=== PATIENT | male | born 1950 | race Caucasian/White ===

== ENCOUNTER 2019-01-07 12:32 | Day surgery (SDC) | payer MEDICARE ==
[~2019-01-07] VITALS: Ht 170.2 cm; Wt 95.5 kg
[2019-01-07 13:19] VITALS: BP 126/80
[2019-01-07] MEDS ORDERED: ASPI-496 PO (13:24)
[2019-01-07] MEDS ORDERED: METO25TA35 PO (13:24)
[2019-01-07] MEDS ORDERED: ATOR40TA78 PO (13:24)
[2019-01-07] MEDS ORDERED: HYDROCHLOROTH12.5 MG PO (13:24)
[2019-01-07 13:38] LABS: ALBUMIN 3.6 g/dL (3.4-5.0); ANION GAP 6 mmol/L (5-15); CALCIUM 8.6 mg/dL (8.5-10.1); CHLORIDE 110 mmol/L (98-107)
[2019-01-07 13:40] LABS: ALANINE AMINOTRANSFERASE 29 U/L (12-78); ALKALINE PHOSPHATASE 68 U/L (45-117); BILIRUBIN,TOTAL 1.2 mg/dL (0.2-1.0); CREATININE 0.91 mg/dL (0.7-1.3); TOTAL PROTEIN 7.4 g/dL (6.4-8.2)
[2019-01-07] MEDS ORDERED: FENTANYL PF 250 MCG/5ML ONE (14:47)
[2019-01-07] MEDS ORDERED: hydrALAzine 20 MG/ML, 1ML IV PRN (15:30)
[2019-01-07] MEDS ORDERED: MEPERIDINE/PF 25MG/0.5ML IVPush PRN (15:30)
[2019-01-07] MEDS ORDERED: FENTANYL PF 100 MCG/2ML IV PRN (15:30)
[2019-01-07] MEDS ORDERED: OXYcodone 5 MG/5 ML ORAL.SOL UDC PO PRN (15:30)
[2019-01-07] MEDS ORDERED: ONDANSETRON 2MG/ML, 2ML IV PRN (15:30)
[2019-01-07] MEDS ORDERED: HYDROmorphone 2 MG/ML, 1ML IVPush PRN (15:30)
[2019-01-07] MEDS ORDERED: LABETALOL 5MG/ML, 20ML IV PRN (15:30)
[2019-01-07] MEDS ORDERED: ONDANSETRON ODT 8 MG PO PRN (15:30)
[2019-01-07] MEDS ORDERED: PROMETHAZINE 25 MG/ML, 1ML IV PRN (15:30)
[2019-01-07] MEDS ORDERED: ACETAMINOPHEN 325 MG TABLET PO PRN (15:30)
[2019-01-07] MEDS ORDERED: ROCURONIUM 10MG/ML,5ML ONE (16:11)
[2019-01-07] MEDS ORDERED: GLYCOPYRROLATE 0.2MG/1ML, 5ML ONE (16:11)
[2019-01-07] MEDS ORDERED: SUCCINYLCHOLINE 20 MG/ML, 10ML ONE (16:11)
[2019-01-07] MEDS ORDERED: PROPOFOL 10 MG/ML, 20ML ONE (16:11)
[2019-01-07] MEDS ORDERED: NEOSTIGMINE 1 MG/ML, 10ML ONE (16:11)
[2019-01-07] MEDS ORDERED: DEXAMETHASONE 4 MG/ML, 1ML ONE (16:11)
[2019-01-07] MEDS ORDERED: CEFAZOLIN 1,000 MG ONE (16:11)
[2019-01-07] MEDS ORDERED: ONDANSETRON 2MG/ML, 2ML ONE ×2 (16:11→16:56)
[2019-01-07] MEDS ORDERED: FENTANYL PF 100 MCG/2ML ONE (16:11)
== END 2019-01-07 18:16 | disposition home or self-care (01) ==
LOC: OUT 12:32
PROVIDERS: ATTEND Internal Medicine Geriatric Medicine
DX: K63.5 Polyp of colon (principal); K28.9 Gastrojejunal ulcer, unspecified as acute or chronic, without hemorrhage or perforation; K31.7 Polyp of stomach and duodenum; I25.10 Atherosclerotic heart disease of native coronary artery without angina pectoris; I25.2 Old myocardial infarction; Z95.1 Presence of aortocoronary bypass graft
CPT/HCPCS: 36415; 44376; 44799; 80053; 85014; 85018; 93005; A4648; J0330; J0690; J1100; J2405; J2704; J2710; J3010